=== PATIENT | female | born 1995 ===

== ENCOUNTER 2021-05-21 10:14 | Inpatient (IN) ==
[2021-05-21] MEDS ORDERED: BUTORPHANOL 2 MG/ML VIAL IV PRN (10:18)
[2021-05-21] MEDS ORDERED: LACTATED RINGERS 1,000 ML IV ONE (10:18)
[2021-05-21] MEDS ORDERED: ONDANSETRON 4 MG/2 ML VIAL IV PRN (10:18)
[2021-05-21] MEDS ORDERED: AMPICILLIN INJ 2,000 MG in SODIUM CHLORIDE 0.9% 100 ML IV ONE (10:20)
[2021-05-21] MEDS ORDERED: ePHEDrine 50 MG/ML VIAL IV PRN (10:22)
[2021-05-21] MEDS ORDERED: PROMETHAZINE 25 MG/1 ML VIAL IM ONE (10:22)
[2021-05-21] MEDS ORDERED: NALOXONE 0.4 MG/ML VIAL IV PRN (10:22)
[2021-05-21] MEDS ORDERED: diphenhydrAMINE 50 MG/1 ML VIAL IV PRN ×2 (10:22)
[2021-05-21] MEDS ORDERED: CITRIC ACID/SODIUM CITRATE 30 ML UDCUP PO ONE (10:22)
[2021-05-21] MEDS ORDERED: FAMOTIDINE 20 MG/2 ML VIAL IV ONE (10:22)
[2021-05-21] MEDS ORDERED: hydrOXYzine HCL 25 MG/1 ML VIAL IM PRN (10:22)
[2021-05-21] MEDS ORDERED: ONDANSETRON 4 MG/2 ML VIAL IV ONE (10:22)
[2021-05-21] MEDS ORDERED: OXYTOCIN/LR 20 UNIT/1,000 ML BAG IV SCH (10:30)
[2021-05-21] MEDS ORDERED: fentaNYL 2 MCG/ROPIV 0.2% EPID 100 ML EPIDURAL SCH (10:30)
[2021-05-21 10:46] LABS: Basophils % 0.1 % (0.0-0.8); Immature Granulocytes % 0.6 %; Immature Granulocytes Absolute 0.04 #; Lymphocytes # 1.4 10*3/uL (1.4-4.0); Lymphocytes % 19.4 % (21.3-54.2); Mean Corpuscular HGB Conc 33.3 GM/DL (32-36); Mean Corpuscular Volume 86.7 FL (87-102); Mean Platelet Volume 10.3 FL (9.6-12.0); Monocytes % 6.8 % (1.7-12.7); Neutrophils % 73.1 % (38.7-73.9); Platelet Count 274 T/CUMM (130-400); Red Blood Count 4.15 MC/CUMM (3.8-5.5); Red Cell Distribution Width 14.7 % (9.3-17.3); White Blood Count 7.1 T/CUMM (4-12)
[2021-05-21 11:04] LABS: Albumin 2.7 G/DL (3.4-5.0); Bilirubin,Total 0.6 MG/DL (0.20-1.00); Calcium 8.6 MG/DL (8.5-10.1); Osmolality,Calculated 272.8 MOS/KG (273-304); Potassium 3.6 MMOL/L (3.5-5.1); Total Protein 7.6 G/DL (6.4-8.2)
[2021-05-21] MEDS: LACTATED RINGERS 1,000 ML IV SCH ×2 (11:26→12:27)
[2021-05-21 13:32] LABS: Mucus,Urine Occasional /LPF (Occasional); RBC,Urine 1 /HPF (0-4)
[2021-05-21 13:33] LABS: Urine Appearance Clear (Clear); Urine Color Yellow (Yellow)
[2021-05-21 13:34] LABS: Bilirubin,Urine Negative (Negative); Blood, Urine Negative (Negative); Glucose,Urine (UA) Negative (Negative); Ketones,Urine Trace mg/dL (Negative); Nitrite,Urine Negative (Negative); Protein,Urine Negative; Urine Urobilinogen 0.2 EU/DL (<2.0)
[2021-05-21] MEDS ORDERED: AMPICILLIN INJ 1,000 MG in SODIUM CHLORIDE 0.9% 100 ML IV SCH (14:30)
[2021-05-21] MEDS ORDERED: METHYLERGONOVINE 0.2 MG/1 ML AMP ONE (14:51)
[2021-05-21] MEDS ORDERED: TRANEXAMIC ACID 1,000 MG/10 ML VIAL ONE (14:51)
[2021-05-21] MEDS ORDERED: SODIUM CHLORIDE 0.9% 0 ML IV ONE (14:51)
[2021-05-21] MEDS ORDERED: CARBOPROST TROMETHAMINE 250 MCG/ML AMP IM ONE (14:51)
[2021-05-21] MEDS ORDERED: miSOPROStoL 200 MCG TABLET ONE (14:51)
[2021-05-21 15:28] LABS: Cord Arterial Blood HCO3 20.5 MMOL/L
[2021-05-21 15:31] LABS: Cord Venous Blood HCO3 22.7 MMOL/L; Cord Venous Blood PCO2 45.6 MMHG; Cord Venous Blood PO2 27.2
[2021-05-21] MEDS ORDERED: RHO(D) IMMUNE GLOBULIN 300 MCG SYRINGE IM ONE (17:11)
[2021-05-21] MEDS ORDERED: OXYTOCIN/LR 20 UNIT/1,000 ML BAG IV ONE (17:11)
[2021-05-21] MEDS ORDERED: ACETAMINOPHEN 325 MG TABLET PO PRN (17:11)
[2021-05-21] MEDS ORDERED: HYDROCORTISONE 2.5% RECTAL CREAM 30 GM TUBE TOP PRN (17:11)
[2021-05-21] MEDS ORDERED: LANOLIN 50% CREAM 0.3 OZ TUBE TOP PRN (17:11)
[2021-05-21] MEDS ORDERED: BISACODYL 10 MG SUPP RECTAL PRN (17:11)
[2021-05-21] MEDS ORDERED: BENZOCAINE 20%/MENTHOL 0.5% SPRAY 56 GM CAN TOP PRN (17:11)
[2021-05-21] MEDS ORDERED: DIPH/TET/ACEL PERT BOOSTER VACCINE 0.5 ML VIAL IM ONE (17:11)
[2021-05-21] MEDS ORDERED: MEASLES/MUMPS/RUBELLA VACCINE 0.5 ML VIAL SUBCUT ONE (17:11)
[2021-05-21] MEDS ORDERED: WITCH HAZEL PADS 100/JAR TOP PRN (17:11)
[2021-05-21] MEDS: METOPROLOL TARTRATE 25 MG TABLET PO SCH (17:41)
[2021-05-21] MEDS: IBUPROFEN 800 MG TABLET PO PRN (19:22)
[2021-05-21] MEDS: oxyCODONE/ACETAMINOPHEN 5-325 MG TABLET PO PRN (20:18)
[2021-05-21] MEDS ORDERED: propylthiouraciL 50 MG TABLET PO SCH (21:00)
[2021-05-21] MEDS ORDERED: METOPROLOL TARTRATE 25 MG TABLET PO SCH (21:00)
[2021-05-22] MEDS: DOCUSATE SODIUM 100 MG CAPSULE PO SCH ×3 (04:14→21:13)
[2021-05-22] MEDS: oxyCODONE/ACETAMINOPHEN 5-325 MG TABLET PO PRN ×3 (04:14→19:17)
[2021-05-22 05:01] LABS: Basophils % 0.2 % (0.0-0.8); Eosinophils % 0.3 % (0.00-10.9); Hematocrit 31.6 VOL% (35.7-47.0); Hemoglobin 10.6 GM/DL (12.0-16.0); Immature Granulocytes % 0.4 %; Immature Granulocytes Absolute 0.04 #; Lymphocytes # 2.5 10*3/uL (1.4-4.0); Lymphocytes % 24.9 % (21.3-54.2); Mean Corpuscular HGB Conc 33.5 GM/DL (32-36); Mean Corpuscular Volume 87.5 FL (87-102); Mean Platelet Volume 11.2 FL (9.6-12.0); Monocytes % 8.1 % (1.7-12.7); Neutrophils % 66.1 % (38.7-73.9); Platelet Count 220 T/CUMM (130-400); Red Blood Count 3.61 MC/CUMM (3.8-5.5); Red Cell Distribution Width 14.7 % (9.3-17.3); White Blood Count 10.1 T/CUMM (4-12)
[2021-05-22] MEDS: METOPROLOL TARTRATE 25 MG TABLET PO SCH (09:54)
[2021-05-22] MEDS: propylthiouraciL 50 MG TABLET PO SCH ×3 (09:57→21:13)
[2021-05-22] MEDS: IBUPROFEN 800 MG TABLET PO PRN ×2 (09:58→19:16)
[2021-05-23] MEDS: DOCUSATE SODIUM 100 MG CAPSULE PO SCH (10:00)
[2021-05-23] MEDS: METOPROLOL TARTRATE 25 MG TABLET PO SCH (10:00)
[2021-05-23] MEDS: propylthiouraciL 50 MG TABLET PO SCH (10:00)
[2021-05-23 11:26] VITALS: BP 143/79
== END 2021-05-23 00:10 | disposition home or self-care (01) | DRG 560 ==
LOC: N.LDOUT 10:14 → N.LD 10:17 → N.OB 05-22 07:57
PROVIDERS: ADMIT Obstetrics & Gynecology; ATTEND Obstetrics & Gynecology